=== PATIENT | male | born 1960 | race Caucasian/White ===

== ENCOUNTER 2023-05-28 17:25 | Emergency (ER) | payer OTHER, SELFPAY ==
[2023-05-28] VITALS (23 sets, daily range): BP systolic 135–225; BP diastolic 82–155; BMI 29.7
[2023-05-28] MEDS: DIPRIVAN 50 MG IV ×2 (18:31→18:32)
[2023-05-28] MEDS: DIPRIVAN 40 MG IV (18:34)
--- NOTE | 2023-05-28 19:43 | EDRN ---
Addendum entered by Hilary Castillo RN 05/28/23 20:01:
sedation documentation completed by ROMAIN Ellington. start time 1939, end time 1954. SEE ROMAIN PAPER DOCUMENTATION
Original Note:
anesthesia at bedside with ortho MD De Santiago who was the proceduralist for reduction of R hip. ROMAIN administered 210 mg propofol and 16mcg Precedex for sedation.
--- NOTE | 2023-05-28 21:03 | ED.GENMED ---
History of Present Illness
General
Chief Complaint: Musculo-Skeletal Complaint
Source: patient
Exam Limitations: none
Time Seen by Provider: 05/28/23 17:45
Travel History
Have you had any contact with someone who has COVID-19?: No
Do you have any symptoms of coronavirus? Fever > 100 degrees, chills, cough, shortness of breath, sore throat, loss of taste or smell, muscle aches, or headache?: No
History of Present Illness
History of Present Illness:
63-year-old male suddenly turned dislocating his right hip. This has happened twice in the past. Pain medication and route. No other injury or complaint. Hip was redone about 10 years ago at [facility]
Past History
Past History
ED Past Medical History: HTN, NIDDM and Other (prostatitis)
ED Past Surgical History: Orthopedic and Other (multiple back surgeries)
Social History
Tobacco: Non-smoker
Alcohol: None
Drug: None
Personal:
Living: with family
Employment: Employed
Family History
Family History: Other (Noncontributory)
Review of Systems
Review of Systems
All Other Systems: Not applicable
Respiratory: Reports no symptoms
Cardiac: Reports no symptoms
ABD/GI: Reports no symptoms
Phy Exam
Physical Exam
Physical Exam:
GENERAL: Alert and oriented in no apparent distress
EYE: Orbits normal.
NECK: Supple
ENT: Pharynx without erythema airway clear
CARDIAC: Regular rate and rhythm without any obvious murmurs.
LUNGS: Clear breath sounds,normal
ABDOMEN: Soft, without focal tenderness or distention
NEUROLOGICAL: Alert and oriented , grossly non-focal
SKIN: Warm and dry, no rash or lesion, no discoloration, skin intact.
MUSCULOSKELETAL: Shortened internally rotated right leg tenderness at the right
PSYCH: Normal and appropriate interaction.
Course
Orders/Labs/Results
Orders:
Orders
05/28/23 17:27
Hip, Right 2-3 Views [CR Hip - RT w/wo Pel 2-3 Vw*] Urgent
Comment:
Reason For Exam: dislocation
Include a pelvis x-ray?: Yes
05/28/23 18:23
Propofol [Diprivan] 40 ml .ROUTE .STK-MED
05/28/23 18:53
Propofol [Diprivan] 50 mg IV NOW STA
Propofol [Diprivan] 50 mg IV NOW STA
05/28/23 18:54
Propofol [Diprivan] 40 mg IV NOW STA
05/28/23 19:50
Knee Immobilizer Right-Treatme ONCE
CR Hip - RT without Pel 1 Vw Urgent
Reason For Exam: post reduction
Vital Signs
Initial and Last Documented VS:
Initial Vital Signs
Temp Pulse Resp Pulse Ox
98.6 F 62 15 99
05/28/23 17:28 05/28/23 17:28 05/28/23 17:28 05/28/23 17:28
Last Documented Vital Signs
Temp Pulse Resp BP Pulse Ox
98.4 F 49 23 179/95 95
05/28/23 19:50 05/28/23 20:50 05/28/23 20:50 05/28/23 20:45 05/28/23 20:30
Procedures
Moderate Sedation
ASA Risk Score: Class II
Chart and allergies reviewed: Yes
Consent for anesthesia obtained: Yes
Time out completed (validating right patient & procedure): Yes
History of difficult intubation: No
Airway free of obstruction: Yes
Patient has a gag reflex: Yes
Patient is able to open mouth: Yes
Patient has no dentures: Yes
Patient has no loose teeth: Yes
Medication administered by Provider during Moderate Sedation: IV Propofol (mg)
Total dose administered: 160
Time drug administered: 18:31
Start Time: 18:31
Stop Time: 18:50
Joint/Fracture Reduction
Right Hip:
Indication for procedure:: Right hip dislocation
Procedure completed by: Myself/Iveth Harman
Consent form signed: Yes
Joint reduced: with anesthesia sedation
Injury was: closed
Further treatement: needs further treatment
*Radiology
Radiology exam reviewed: preliminary read by ED provider (Dislocated right hip prosthesis) and radiology read reviewed (Dislocated right hip prosthesis postreduction normal)
*Pulse Oximetry
Patient hypoxic: no
*Worship Leader Interpretation
Rate: normal
Interpretation: normal
Heart Rate: 57
Rhythm: sinus
*Critical Care Note
Total Time (30-74mins, 75-104mins- exclusive of procedures): Not Applicable
Update Note
Update Note:
R hip reduction was unsuccessful. Orthopedics was called and it was reduced with orthopedics and anesthesia.
ED Attending Note
-
Portions of this chart may have been created with voice recognition software.� Occasional wrong word or��sound alike� substitutions may have occurred due to the inherent limitations of voice recognition software.
Discharge Plan
Departure
Patient Disposition: Home (Routine Discharge)
Date of Disposition: 05/28/23
Time of Disposition: 21:07
Patient with high blood pressure during this ER visit?: Yes
Discharge Problem:
Right hip dislocation
Instructions: Hip Dislocation (DC), MODERATE SEDATION ADULT, BLOOD PRESSURE
Prescriptions:
No Action
tamsulosin 0.4 MG capsule
0.8 mg PO DAILY Qty: 30 0RF
Rx Instructions:
take with meal at the same time daily
quetiapine 25 MG tablet
25 mg PO DAILY
celecoxib 200 MG capsule
200 mg PO BID
tizanidine 4 MG tablet
4 mg PO BID
lisinopril 20 MG tablet
20 mg PO DAILY
gabapentin 400 MG capsule
400 mg PO TID
sertraline 100 MG tablet
100 mg PO DAILY
clonazepam 1 MG tablet
1 mg PO TID
dicyclomine 20 MG tablet
20 mg PO QID
docusate sodium 100 MG capsule
100 mg PO DAILY
hydroxyzine HCl 25 MG tablet
25 mg PO BID
lansoprazole 30 MG tablet,disintegrat, delay rel
30 mg PO DAILY
quetiapine 100 MG tablet
100 mg PO HS
diclofenac sodium [Voltaren] 100 GM gel
100 gm TP PRN PRN (Reason: pain)
Epidiolex 1 UNIT solution
1 unit PO PRN PRN (Reason: pain)
ketorolac 10 MG tablet
10 mg PO Q6HPRN PRN (Reason: moderate to severe pain) Qty: 12 0RF
Referrals:
Shawn Guerra MD [Family Provider] -
Activity Restrictions/Additional Instructions:
Call your orthopedist tomorrow for close follow-up
Interventions
Interventions:
*Risk Screen - Suicide Last Done: 05/28/23 17:28
*General Assessment Last Done: 05/28/23 17:28
*Neglect/Abuse Screening Last Done: 05/28/23 17:28
*ED COVID-19 Vaccine History Last Done: 05/28/23 17:28
ED-Musculoskeletal Assessment Last Done: 05/28/23 17:28
== END 2023-05-28 21:15 | disposition home or self-care (01) ==
LOC: EMR 17:25
PROVIDERS: EMERGENCY PHYSICIAN Emergency Medicine; FAMILY PHYSICIAN Family Medicine; OTHER PHYSICIAN Orthopaedic Surgery Hand Surgery
DX: T84.020A Dislocation of internal right hip prosthesis, initial encounter (principal); X58.XXXA Exposure to other specified factors, initial encounter; I10 Essential (primary) hypertension; E11.9 Type 2 diabetes mellitus without complications; N41.9 Inflammatory disease of prostate, unspecified; Z96.643 Presence of artificial hip joint, bilateral; F19.11 Other psychoactive substance abuse, in remission; Z88.8 Allergy status to other drugs, medicaments and biological substances; Z88.1 Allergy status to other antibiotic agents
CPT/HCPCS: 27266; 99285; 99152; 73501; 73502

== ENCOUNTER 2023-08-12 15:46 | Emergency (ER) | payer OTHER, SELFPAY ==
[2023-08-12] VITALS (7 sets, daily range): BP systolic 177–197; BP diastolic 99–116; BMI 26.8
[2023-08-12] MEDS: SUBLIMAZE 100 MCG IV (16:21)
--- NOTE | 2023-08-12 16:58 | ED.GENMED ---
History of Present Illness
<Ricardo Luis PA-C - Last Filed: 08/12/23 17:58>
General
Chief Complaint: Musculo-Skeletal Complaint
Time Seen by Provider: 08/12/23 15:49
Travel History
Have you had any contact with someone who has COVID-19?: No
Do you have any symptoms of coronavirus? Fever > 100 degrees, chills, cough, shortness of breath, sore throat, loss of taste or smell, muscle aches, or headache?: No
History of Present Illness
History of Present Illness:
63-year-old male presents to the emergency department for evaluation of a suspected right hip dislocation. Right hip arthroplasty was done approximately 11 years ago at [facility]. Patient has had numerous nontraumatic hip dislocations
over the past 2 years but has not followed up as outpatient with his orthopedist. States today he was bending over to clean up his bathroom floors when he felt the hip go out. Was given NSAIDs by EMS
Past History
<Ricardo Luis PA-C - Last Filed: 08/12/23 17:58>
Past History
ED Past Medical History: HTN, NIDDM and Other (prostatitis)
ED Past Surgical History: Orthopedic and Other (multiple back surgeries)
Social History
Tobacco: Non-smoker
Alcohol: None
Drug: None
Personal:
Living: with family
Employment: Employed
Family History
Family History: Other (Noncontributory)
Review of Systems
<Ricardo Luis PA-C - Last Filed: 08/12/23 17:58>
Review of Systems
Allergies reviewed?: Yes
All Other Systems: ROS reviewed and negative except as documented in HPI and ROS
Phy Exam
<Ricardo Luis PA-C - Last Filed: 08/12/23 17:58>
Physical Exam
Physical Exam:
GEN: Well appearing, NAD, WDWN
HEENT: Oral mucosa moist, no scleral icterus
Cardiac: Regular rate
Lung: No respiratory distress, no tachypnea
MSK: Obvious shortening and internal rotation of the right lower extremity consistent with hip dislocation, dorsalis pedis pulses 2+
Skin: Good color, no pallor or jaundice, no rashes
Neuro: AO x3, moves all extremities freely
Psych: Calm, cooperative
Course
<Rciardo Luis PA-C - Last Filed: 08/12/23 17:58>
Orders/Labs/Results
Orders:
Orders
08/12/23 16:07
Fentanyl Citrate/Pf [Sublimaze] 100 mcg IV NOW STA
CR Hip - RT w/wo Pel 2-3 Vw* Urgent
Comment:
Reason For Exam: prosthetic hip dislocation
Include a pelvis x-ray?: No
08/12/23 16:59
Propofol [Diprivan] 40 ml .ROUTE .STK-MED
Propofol [Diprivan] 40 ml .ROUTE .STK-MED
08/12/23 17:18
CR Hip - RT without Pel 1 Vw Urgent
Comment:
Reason For Exam: post reduction
Vital Signs
Initial and Last Documented VS:
Initial Vital Signs
Temp Pulse Resp BP Pulse Ox
98.4 F 64 16 197/103 95
08/12/23 15:55 08/12/23 15:55 08/12/23 15:55 08/12/23 15:55 08/12/23 15:55
Last Documented Vital Signs
Temp Pulse Resp BP Pulse Ox
98.1 F 61 16 177/108 97
08/12/23 17:53 08/12/23 17:53 08/12/23 17:53 08/12/23 17:53 08/12/23 17:53
<David Hamilton MD - Last Filed: 08/12/23 18:12>
Orders/Labs/Results
Orders:
Orders
08/12/23 16:07
Fentanyl Citrate/Pf [Sublimaze] 100 mcg IV NOW STA
CR Hip - RT w/wo Pel 2-3 Vw* Urgent
Comment:
Reason For Exam: prosthetic hip dislocation
Include a pelvis x-ray?: No
08/12/23 16:59
Propofol [Diprivan] 40 ml .ROUTE .STK-MED
Propofol [Diprivan] 40 ml .ROUTE .STK-MED
08/12/23 17:18
CR Hip - RT without Pel 1 Vw Urgent
Comment:
Reason For Exam: post reduction
Vital Signs
Initial and Last Documented VS:
Initial Vital Signs
Temp Pulse Resp BP Pulse Ox
98.4 F 64 16 197/103 95
08/12/23 15:55 08/12/23 15:55 08/12/23 15:55 08/12/23 15:55 08/12/23 15:55
Last Documented Vital Signs
Temp Pulse Resp BP Pulse Ox
98.1 F 61 16 177/108 97
08/12/23 17:53 08/12/23 17:53 08/12/23 17:53 08/12/23 17:53 08/12/23 17:53
Procedures
<Ricardo Luis PA-C - Last Filed: 08/12/23 17:58>
Moderate Sedation
ASA Risk Score: Class II
Chart and allergies reviewed: Yes
Consent for anesthesia obtained: Yes
Time out completed (validating right patient & procedure): Yes
Moderate Sedation Start Time(when first medication is given): 17:08
History of difficult intubation: No
Airway free of obstruction: Yes
Patient has a gag reflex: Yes
Patient is able to open mouth: Yes
Patient has no dentures: Yes
Patient has no loose teeth: Yes
Medication administered by Provider during Moderate Sedation: IV Propofol (mg)
Total dose administered: 180
Time drug administered: 17:08
Moderate Sedation Procedure End Time: 17:23
Joint/Fracture Reduction
Right Hip:
Indication for procedure:: Hip Dislocation
Procedure completed by: Ricardo Luis PA-C
Consent form signed: Yes
Joint reduced: with anesthesia sedation
Injury was: closed
Further treatement: needs re-check only
Post reduction exam: stable
Capillary Refill: normal
Normal distal neurovascular exam?: Yes
<Ricardo Luis PA-C - Last Filed: 08/12/23 17:58>
MDM/Problems Addressed
MDM/Problems Addressed:
63-year-old male presents with a spontaneous hip dislocation. Required conscious sedation with successful reduction of the hip. Tolerated sedation well with no adverse events. Strong encouraged the patient to follow-up with orthopedics for
revision due to the frequency of his dislocations
<Ricardo Luis PA-C - Last Filed: 08/12/23 17:58>
*Critical Care Note
Total Time (30-74mins, 75-104mins- exclusive of procedures): Not Applicable
ED Attending Note
<Ricardo Luis PA-C - Last Filed: 08/12/23 17:58>
-
Portions of this chart may have been created with voice recognition software.� Occasional wrong word or��sound alike� substitutions may have occurred due to the inherent limitations of voice recognition software.
<David Hamilton MD - Last Filed: 08/12/23 18:12>
ED Attending Note
Patient seen and examined by attending physician: Yes
ED Attending Note:
Patient presents to ED secondary to possible recurrent right hip dislocation, as he felt 'popping' sensation when he bent down to clean his bathroom floor. Patient had an original repair approximately 11 years ago at [facility]. Since
then, patient unfortunately has had multiple hip dislocation, requiring ED visits for treatment.
Physical Exam
General: moderate painful distress, not acutely ill. afebrile
Head: nc/at. eomi
Neck: supple. normal range of motion.
Neuro: alert and oriented. no focal neurological deficits
Skin: no rash
Psychiatric: well kept. interactive and cooperative
Extremities: right LE: internally rotated/shortened
History, exam, and x-ray consistent with right hip dislocation, without fracture. Procedural consent obtained.
After sedation with propofol, successfully reduced, confirmed via x-ray. Knee immobilizer applied. Patient referred to orthopedic surgery for an outpatient consultation, including potential revision. Patient otherwise afebrile, hemodynamic
stable, and appears comfortable, at time of discharge, to the care of his family.
Discharge Plan
Departure
Patient Disposition: Home (Routine Discharge)
Date of Disposition: 08/12/23
Time of Disposition: 17:48
Patient with high blood pressure during this ER visit?: Yes
Discharge Problem:
Dislocation of internal right hip prosthesis
Instructions: Hip Dislocation (DC)
Prescriptions:
No Action
tamsulosin 0.4 MG capsule
0.8 mg PO DAILY Qty: 30 0RF
Rx Instructions:
take with meal at the same time daily
quetiapine 25 MG tablet
25 mg PO DAILY
celecoxib 200 MG capsule
200 mg PO BID
tizanidine 4 MG tablet
4 mg PO BID
lisinopril 20 MG tablet
20 mg PO DAILY
gabapentin 400 MG capsule
400 mg PO TID
sertraline 100 MG tablet
100 mg PO DAILY
clonazepam 1 MG tablet
1 mg PO TID
dicyclomine 20 MG tablet
20 mg PO QID
docusate sodium 100 MG capsule
100 mg PO DAILY
hydroxyzine HCl 25 MG tablet
25 mg PO BID
lansoprazole 30 MG tablet,disintegrat, delay rel
30 mg PO DAILY
quetiapine 100 MG tablet
100 mg PO HS
diclofenac sodium [Voltaren] 100 GM gel
100 gm TP PRN PRN (Reason: pain)
Epidiolex 1 UNIT solution
1 unit PO PRN PRN (Reason: pain)
ketorolac 10 MG tablet
10 mg PO Q6HPRN PRN (Reason: moderate to severe pain) Qty: 12 0RF
Referrals:
Abraham Perez MD [Active] -
Activity Restrictions/Additional Instructions:
No flexing the hip!
Wear the knee immobilizer until you see Orthopedics
IT IS IMPORTANT THAT YOU FOLLOW UP WITH ORTHOPEDICS TO PREVENT THIS FROM HAPPENING REPEATEDLY
Interventions
Interventions:
*Risk Screen - Suicide Last Done: 08/12/23 15:57
*General Assessment Last Done: 08/12/23 15:57
*Neglect/Abuse Screening Last Done: 08/12/23 15:57
ED- Fall Risk Assessment Last Done: 08/12/23 18:03
*ED COVID-19 Vaccine History Last Done: 08/12/23 15:57
*Nursing Disposition Last Done: 08/12/23 18:03
ED-Musculoskeletal Assessment Last Done: 08/12/23 15:58
Discharge Date and Time
Print Language: FIJIAN
== END 2023-08-12 18:17 | disposition home or self-care (01) ==
LOC: EMR 15:46
PROVIDERS: EMERGENCY PHYSICIAN Emergency Medicine; FAMILY PHYSICIAN Family Medicine
DX: T84.020A Dislocation of internal right hip prosthesis, initial encounter (principal); X50.1XXA Overexertion from prolonged static or awkward postures, initial encounter; Y79.2 Prosthetic and other implants, materials and accessory orthopedic devices associated with adverse incidents; I10 Essential (primary) hypertension
CPT/HCPCS: 99285; 27265; 96374; 99152; 73501; 73502

== ENCOUNTER 2024-08-17 07:39 | Day surgery (SDC) | payer OTHER, SELFPAY ==
[2024-08-16 23:41] VITALS: BMI 29.5
--- NOTE | 2024-08-16 23:46 | ED.MUSCINJ ---
HPI-Injury
General
Chief Complaint: Musculo-Skeletal Complaint
Source: patient
Exam Limitations: none
Time Seen by Provider: 08/16/24 23:39
Nursing documentation reviewed up to this point in time: agreed with
History of Present Illness-Injury
Initial Injury comments:
64-year-old male presents emergency department due to hearing and right hip pop after bending down. This feels similar to prior dislocations. He had a hip dislocation 5 days ago.
Past History
Past History
ED Past Medical History: HTN, NIDDM and Other (prostatitis)
ED Past Surgical History: Orthopedic and Other (multiple back surgeries)
Social History
Tobacco: Non-smoker
Alcohol: None
Drug: None
Personal:
Living: with family
Employment: Employed
Family History
Family History: Other (Noncontributory)
Review of Systems
Review of Systems
Allergies reviewed?: Yes
All Other Systems: Not applicable
Constitutional: Reports no symptoms
EENT: Reports no symptoms
Respiratory: Reports no symptoms
ABD/GI: Reports no symptoms
: Reports no symptoms
Musculoskeletal: Reports joint pain
Skin: Reports no symptoms
Neurological: Reports no symptoms
Endocrine: Reports no symptoms
Hematologic/Lymphatic: Reports no symptoms
Psychiatric: Reports no symptoms
Phy Exam
Physical Exam
Physical Exam:
Physical Exam
General: no apparent distress, not acutely ill
Neck: supple. no meningeal signs. normal posterior pharynx
Heart: s1/s2 regular rate and rhythm, no murmur. equal radial
pulses.
HEENT: Pupils equal round reactive to light, EOMI
Lungs: no acute respiratory distress. clear bilaterally
Abdomen: normal bowel sounds. not tender. no CVAT
Neuro: alert and oriented. no focal neurological deficits cranial nerves II through XII intact
Skin: no rash
Psychiatric: well kept. interactive and cooperative
Extremities: no edema. no calf tenderness. negative homans. good distal pulses, right hip/leg internally rotated
Injury Course
Orders/Labs/Results
Orders:
Orders
08/16/24 23:40
IV Insert/Care/Rem.- Treatment PRN
08/16/24 23:45
Cardiac Monitoring- Treatment ONCE
08/16/24 23:54
HYDROmorphone [Dilaudid] 1 mg IV NOW STA
08/17/24 00:00
CR Hip - RT w/wo Pel 2-3 Vw* Urgent
Reason For Exam: right hip pain
Include a pelvis x-ray?: Yes
08/17/24 00:52
Propofol [Diprivan] 60 mg IV NOW STA
08/17/24 00:53
ASA Classification Routine
08/17/24 01:10
CR Hip - RT without Pel 1 Vw Urgent
Reason For Exam: post reduction
08/17/24 01:18
Propofol [Diprivan] 20 ml .ROUTE .STK-MED
08/17/24 01:52
Lorazepam [Ativan] 1 mg PO NOW STA
08/17/24 02:00
CT Pelvis W/o Iv Contrast Urgent
Comment:
Reason For Exam: right hip dislocation, pain
08/17/24 02:13
HydrALAZINE [Apresoline] 10 mg IV NOW STA
Procedures
Moderate Sedation
ASA Risk Score: Class I
Chart and allergies reviewed: Yes
Consent for anesthesia obtained: Yes
Time out completed (validating right patient & procedure): Yes
Moderate Sedation Start Time(when first medication is given): 01:04
History of difficult intubation: No
Airway free of obstruction: Yes
Patient has a gag reflex: Yes
Patient is able to open mouth: Yes
Patient has no dentures: Yes
Patient has no loose teeth: Yes
Medication administered by Provider during Moderate Sedation: IV Propofol (mg)
Total dose administered: 330
Time drug administered: 01:04
Moderate Sedation Procedure End Time: 01:25
Joint/Fracture Reduction
Right Hip:
Indication for procedure:: dislocation
Procedure completed by: Yomi
Consent form signed: Yes
Joint reduced: with anesthesia sedation
Anesthesia/sedation: Moderate sedation
Injury was: closed
Further treatement: needs further treatment
Post reduction exam: stable
Capillary Refill: normal
Normal distal neurovascular exam?: Yes
Peripheral Pulses: dorsalis pedis (right): 4+
MDM/Problems Addressed
Differential Diagnosis Includes:
Hip dislocation, hip fracture
MDM/Problems Addressed:
64-year-old male with right hip dislocation, unable to reduce in ED. Dr. Escobedo will take to OR in the a.m. for close reduction. Blood pressure treated with hydralazine. Patient with urinary retention, resolved after straight cath.
Chronic conditions affecting care: HTN
Acute Exacerbation and/or Progression of Chronic Illness: HTN
*Radiology
Radiology exam reviewed: preliminary read by ED provider (Right hip x-ray shows dislocation)
*Pulse Oximetry
Patient hypoxic: no
*Critical Care Note
Total Time (30-74mins, 75-104mins- exclusive of procedures): 32
comment:
Critical care statement: A total of 32 minutes of critical care time was provided for this patient. This includes management of unstable vital signs, evaluation of the patient at bedside, reviewing the patient's pertinent medical records, discussion
with consultants, review of old EKGs and review of pertinent medical records. This time with separate from time utilized to perform the aforementioned documented procedures
Patient Management
Social determinants of health affecting care: Living situation and Substance abuse
Discussion with other providers: Sulky Driver (Orthopedics)
Escalation/DeEscalation of care consider admission/obs:
Admit to the OR indicated
ED Attending Note
-
Portions of this chart may have been created with voice recognition software.� Occasional wrong word or��sound alike� substitutions may have occurred due to the inherent limitations of voice recognition software.
Discharge Plan
Departure
Patient Disposition: OR
Date of Disposition: 08/17/24
Time of Disposition: 01:54
Admit to: OR
Admit to doctor: Rohit Escobedo
Presentation/result/management discussed w/ accepting MD/DO: orthopedics
Patient with high blood pressure during this ER visit?: Yes
Condition: Good
Discharge Problem:
Closed dislocation of right hip
Prescriptions:
No Action
tamsulosin 0.4 MG capsule
0.8 mg PO DAILY Qty: 30 0RF
Rx Instructions:
take with meal at the same time daily
quetiapine 25 MG tablet
25 mg PO DAILY
celecoxib 200 MG capsule
200 mg PO BID
tizanidine 4 MG tablet
4 mg PO BID
lisinopril 20 MG tablet
20 mg PO DAILY
gabapentin 400 MG capsule
400 mg PO TID
sertraline 100 MG tablet
100 mg PO DAILY
clonazepam 1 MG tablet
1 mg PO TID
dicyclomine 20 MG tablet
20 mg PO QID
docusate sodium 100 MG capsule
100 mg PO DAILY
hydroxyzine HCl 25 MG tablet
25 mg PO BID
lansoprazole 30 MG tablet,disintegrat, delay rel
30 mg PO DAILY
quetiapine 100 MG tablet
100 mg PO HS
diclofenac sodium [Voltaren] 100 GM gel
100 gm TP PRN PRN (Reason: pain)
Epidiolex 1 UNIT solution
1 unit PO PRN PRN (Reason: pain)
ketorolac 10 MG tablet
10 mg PO Q6HPRN PRN (Reason: moderate to severe pain) Qty: 12 0RF
Referrals:
Shawn Guerra MD [Family Provider, Family Practice]
Interventions
Interventions:
*Risk Screen - Suicide Last Done: 08/16/24 23:41
*General Assessment Last Done: 08/16/24 23:41
*Neglect/Abuse Screening Last Done: 08/16/24 23:41
*ED- Fall Risk Assessment Last Done: 08/16/24 23:41
*ED COVID-19 Vaccine History Last Done: 08/16/24 23:41
ED-Musculoskeletal Assessment Last Done: 08/16/24 23:41
Discharge Date and Time
Print Language: MEXICAN
[2024-08-16 23:48] VITALS: BP 229/145
[2024-08-16] MEDS: DILAUDID 1 MG IV (23:59)
[2024-08-17] VITALS (35 sets, daily range): BP systolic 183–254; BP diastolic 99–162
[2024-08-17] MEDS: DIPRIVAN 60 MG IV (01:04)
[2024-08-17] MEDS: ATIVAN 1 MG PO (02:04)
[2024-08-17] MEDS: APRESOLINE 10 MG IV (02:18)
[2024-08-17] MEDS: TRANDATE 10 MG IV (04:21)
[2024-08-17] MEDS: FLUSH (NSS) 1 FLUSH IV (04:26)
[2024-08-17 04:34] LABS: % Basophils 0.3 % (0-2); % Immature Granulocytes 0.3 % (0-0.5); % Lymphocytes 23.2 % (20.5-51.1); % Monocytes 6.3 % (1.7-9.3); % Neutrophils 69.9 % (42.2-75.2); Absolute Lymphocytes 2.2 10^3/uL (1.2-3.4); Absolute Monocytes 0.6 10^3/uL (0.1-0.6); Absolute Neutrophils 6.5 10^3/uL (1.4-6.5); Hematocrit 44.1 % (39.0-52.0); Hemoglobin 16.4 g/dL (13.0-18.0); Mean Corp Hgb Conc. 37.2 g/dL (33.0-37.0); Mean Corpuscular Hgb 30.8 pg (27.0-31.0); Mean Corpuscular Volume 82.9 fL (80.0-94.0); Mean Platelet Volume 9.1 fL (7.4-10.4); Nucleated Red Blood Cells % 0 % (-); Platelet Count 171 10^3/uL (130-400); Red Blood Cell Count 5.32 10^6/uL (4.70-6.10); Red Cell Dist. Width 12.5 % (11.5-14.5); White Blood Cell Count 9.3 10^3/uL (4.8-10.8)
[2024-08-17 04:57] LABS: ALT (SGPT) 65 U/L (0-50); AST (SGOT) 70 U/L (17-59); Alkaline Phosphatase 69 U/L (38-126); Blood Urea Nitrogen 8 mg/dl (9-20); Calcium 9.7 mg/dl (8.4-10.2); Carbon Dioxide 22 mmol/L (22-30); Chloride 105 mmol/L (98-107); Estimated Creatinine Clearance > 125 ml/min; Glucose 108 mg/dl (70-99); Potassium 4.3 mmol/L (3.5-5.1); Sodium 140 mmol/L (135-145); Total Bilirubin 1.1 mg/dl (0.2-1.3); Total Protein 8.1 g/dl (6.3-8.2); eGFR > 60.00
[2024-08-17] MEDS: DILAUDID 1 MG IV (07:09)
--- NOTE | 2024-08-17 07:18 | CON.ORTHO ---
Consultation
-
Date/Time Consultation Requested: 08/17/2024
Date/Time Consultation Performed: 08/17/2024
Requesting Provider: Dr. Celaya
Performing Provider: Katya Farrar PA-C, for Dr. Rohit Escobedo
Reason for Consultation: Right hip dislocation s/p right HAM
Consultation - Orthopedics
History
HPI: This is a 64 year old male who presented to after sustaining a right hip dislocation prior to arrival. He denies any specific injury and reports he merely bent over while seated to reach for something. He does have a h/o mulitple
dislocations since his initial right HAM in [address] Graf (performed at [facility]). He has required multiple reductions in the emergency dept over the years as well as a closed reduction in the OR with Dr. De Santiago in May 2023. He has
not returned to Dr. Graf to discuss revision surgery. Closed reduction was attempted in the Emergency Dept, but not successful. He reports significant pain and muscle spasms about his right thigh. His BP in the ED has been elevated, 224/108 upon
my arrival.
PMH: HTN, NIDDM, prostatis.
PSH: spinal surgeries, B/L THAs.
Social history: Lives at home with with. Denies tobacco or alcohol use.
Family history: non contributory.
Review of systems: all systems reviewed and negative except for those mentioned in HPI.
Allergies / Home Medications
Allergy/AdvReac Type Severity Reaction Status Date / Time
bupropion (From Wellbutrin) Allergy manic Verified 08/16/24 23:41
episode
divalproex sodium (From Allergy Pharmacy Verified 08/16/24 23:41
Depakote) to Review
erythromycin base Allergy diarrhea Verified 08/16/24 23:41
mirtazapine (From Remeron) Allergy nightmares Verified 08/16/24 23:41
nefazodone (From Serzone) Allergy manic Verified 08/16/24 23:41
episodes
ramelteon (From Rozerem) Allergy nightmares Verified 08/16/24 23:41
risperidone (From Risperdal) Allergy manic Verified 08/16/24 23:41
temazepam (From Restoril) Allergy manic Verified 08/16/24 23:41
episodes
�Medication �Instructions �Recorded
tamsulosin 0.4 mg capsule 0.8 mg (2 x 0.4 mg) PO DAILY #30 08/20/15
caps
cannabidiol 100 mg/mL oral 1 unit PO PRN PRN pain 08/11/21
solution (Epidiolex)
celecoxib 200 mg capsule 200 mg PO BID 08/11/21
clonazepam 1 mg tablet 1 mg PO TID 08/11/21
diclofenac sodium 1 % topical gel 100 gm TP PRN PRN pain 08/11/21
(Voltaren)
dicyclomine 20 mg tablet 20 mg PO QID 08/11/21
docusate sodium 100 mg capsule 100 mg PO DAILY 08/11/21
gabapentin 400 mg capsule 400 mg PO TID 08/11/21
hydroxyzine HCl 25 mg tablet 25 mg PO BID 08/11/21
lansoprazole 30 mg delayed 30 mg PO DAILY 08/11/21
release,disintegrating tablet
lisinopril 20 mg tablet 20 mg PO DAILY 08/11/21
quetiapine 100 mg tablet 100 mg PO HS 08/11/21
quetiapine 25 mg tablet 25 mg PO DAILY 08/11/21
sertraline 100 mg tablet 100 mg PO DAILY 08/11/21
tizanidine 4 mg tablet 4 mg PO BID 08/11/21
ketorolac 10 mg tablet 10 mg PO Q6HPRN PRN moderate to 08/16/21
severe pain #12 tabs
Vital Signs / Lab Results
Temp Pulse Resp BP Pulse Ox
98.5 F 63 16 224/108 99
08/17/24 07:01 08/17/24 07:01 08/17/24 07:01 08/17/24 07:01 08/17/24 07:01
08/17/24 04:27
08/17/24 04:27
Physical examination:
General: In obvious distress from pain in right hip, AAO x 3.
HEENT: AT/NC, neck supple.
Heart: RRR.
Lungs: Non labored breathing on room air.
Right hip: TTP diffusely. Leg rotated. N/v intact distally.
Radiographic studies:
X-rays of the right hip show evidence of dislocation of right hip prosthesis.
Assessment / Plan
Assessment: Right hip prosthetic dislocation, recurrent
Plan: Unfortunately, Darrian sustained a recurrent dislocation of his right hip. This was unable to be reduced under sedation in the emergency department, so we discussed that he will need to be taken to the operating room where we will attempt a
closed reduction. This will be done under the direction of Dr. Escobedo. Surgical consent was obtained and the right hip was marked as the correct site. Postoperatively, he will placed in a knee immobilizer that should be worn full-time. He should
follow total hip precautions to include no bending of his hip, no twisting, but he may weight-bear as tolerated. He should avoid driving until further notice. We will have him follow-up in our office for discussion of definitive treatment
recommendations going forward. He was instructed to contact the office with any questions going forward.
--- NOTE | 2024-08-17 07:26 | EDRN ---
the OR called this RN and verbal report was given
--- NOTE | 2024-08-17 07:34 | EDRN ---
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
help i can't pee i need to be catheterized', per the providers orders the pt was bladder scanned and straight cathed, see work list for details, the pt has been hypertensive, Dr. Vivas was notified, the pt had c/o hip pain, Dilaudid 1mg IV
administered per the providers orders, medication reconciliation was not performed, the pt does not have a list of his medications and states that he does not know all of them
[2024-08-17] MEDS: ZESTRIL 20 MG PO (10:14)
== END 2024-08-17 11:45 | disposition home or self-care (01) ==
LOC: SDS 07:39
PROVIDERS: Emergency Medicine; ATTENDING PHYSICIAN Orthopaedic Surgery; EMERGENCY PHYSICIAN Emergency Medicine; FAMILY PHYSICIAN Family Medicine
DX: T84.020A Dislocation of internal right hip prosthesis, initial encounter (principal); Y83.1 Surgical operation with implant of artificial internal device as the cause of abnormal reaction of the patient, or of later complication, without mention of misadventure at the time of the procedure
CPT/HCPCS: 27266; 27250; 51701; 51798; 72192; 73501; 73502; 76000; 80053; 85025; 96374; 96375; 99152; 99291